=== PATIENT | male | born 1960 | race Caucasian/White ===

== ENCOUNTER → 2019-05-21 | Outpatient (CLI) | payer BC ==
[2019-05-21 10:14] LABS: BASO # 0.1 x10^3/uL (0.0-0.2); BASO % 1 % (0-3); EOS # 0.3 x10^3/uL (0.0-0.7); EOS % 2 % (0-3); HEMATOCRIT 41.2 % (39.0-53.0); LYMPH # 1.7 x10^3/uL (1.0-4.8); LYMPH % 15 % (24-48); MEAN CORPUSCULAR HEMOGLOBIN 32 pg (25-35); MEAN CORPUSCULAR HGB CONC 34 g/dL (31-37); MEAN CORPUSCULAR VOLUME 94 fL (79-100); MONO % 9 % (0-9); NEUT # 8.4 x10^3/uL (1.8-7.7); NEUT % 73 % (31-73); PLATELET COUNT 208 x10^3/uL (140-400); RED BLOOD COUNT 4.39 x10^6/uL (4.30-5.70); RED CELL DISTRIBUTION WIDTH 13.8 % (11.5-14.5); WHITE BLOOD COUNT 11.5 x10^3/uL (4.0-11.0)
[2019-05-21 10:20] LABS: ALBUMIN 4.2 g/dL (3.4-5.0); ALBUMIN/GLOBULIN RATIO 1.5 (1.0-1.7); CALCIUM 9.7 mg/dL (8.5-10.1); CREATININE 1.1 mg/dL (0.7-1.3); GFR 68.1; POTASSIUM 4.6 mmol/L (3.5-5.1); TOTAL BILIRUBIN 0.4 mg/dL (0.2-1.0)
== END | disposition home or self-care (01) ==
LOC: LAB 09:34
PROVIDERS: ATTEND Psychiatry & Neurology Neurology
DX: G62.9 Polyneuropathy, unspecified (principal)
CPT/HCPCS: 36415; 80053; 82607; 84443; 85025

== ENCOUNTER → 2019-11-04 | Outpatient (CLI) | payer BC ==
--- NOTE | 2019-11-04 08:56 | KCIC ---
EXAM: Lumbar spine MRI without contrast. HISTORY: Radiculopathy. TECHNIQUE: Multiplanar, multisequence magnetic resonance imaging of the lumbar spine was performed without contrast. COMPARISON: None. FINDINGS: There is mild lumbar dextrocurvature. There is slight retrolisthesis of L2 on L3. There is degenerative endplate remodeling and osteophytosis at multiple levels. There are multiple endplate Schmorl's nodes. There is disc desiccation at multiple levels. There is no fracture or suspicious osseous lesion. The conus terminates at L1. There is a small cyst within the posterior right hepatic lobe. There is T2 hyperintensity within the inferior vena cava likely due to flow artifact. At T11-T12, there is a posterior central disc protrusion and osteophyte complex. There is slight deformation of the conus without significant stenosis. At T12-L1, there is a disc bulge and endplate osteophytosis. There is no stenosis. At L1-L2, there is a disc bulge and endplate osteophytosis. There is mild bilateral facet arthropathy. There is no stenosis. At L2-L3, there is a suspected tiny right foraminal disc protrusion and annular tear superimposed on a disc bulge and endplate osteophytosis. There is mild bilateral facet arthropathy. There is no stenosis. At L3-L4, there is a disc bulge and endplate remodeling. There is mild lateral facet arthropathy. There is no stenosis. At L4-L5, there is a disc bulge and endplate remodeling. There is mild left greater than right facet arthropathy. There is no stenosis. At L5-S1, there is a disc bulge and endplate remodeling. There is severe right and moderate left facet arthropathy. There is mild right foraminal stenosis. IMPRESSION: 1. Multilevel degenerative change involving the lower thoracic and lumbar spine, described in detail above. This results in mild right foraminal stenosis at L5-S1. 2. No acute finding. Electronically signed by: Sahra Santana MD (11/04/2019 8:53 AM) [facility]
== END | disposition home or self-care (01) ==
LOC: KCIC MRI 07:47
PROVIDERS: ATTEND Nurse Practitioner Family
DX: M47.26 Other spondylosis with radiculopathy, lumbar region (principal); M51.24 Other intervertebral disc displacement, thoracic region; M48.07 Spinal stenosis, lumbosacral region; M25.78 Osteophyte, vertebrae
CPT/HCPCS: 72148